=== PATIENT | male | born 1965 | race Caucasian/White ===

== ENCOUNTER 2022-11-26 19:08 | Emergency (ER) | payer OTHER, SELFPAY ==
[2022-11-26] VITALS (30 sets, daily range): BP systolic 103–140; BP diastolic 49–95; PULSE 56–95; RESP 8–29; TEMP 36.6; O2SAT 95–100; BMI 32.9
--- NOTE | 2022-11-26 19:30 | ED_ITS ---
HPI - Weakness General Chief complaint: Weakness Stated complaint: BLOOD LOSS Time Seen by Provider: 11/26/22 19:23 Source: patient Mode of arrival: ambulance Limitations: no limitations History of Present Illness HPI Narrative: coffee ground emesis Saturday night x 1. Generalized weakness since Saturday. Dark loose stool today containing blood. no abdominal pain. States he had colonoscopy and UGI 1.[address] [facility] due to brother with recent diagnosis of colon CA. No evidence of colon CA. States there was some concern about blood vessels seen with the UGI. No fever. MD Complaint: Reports generalized weakness Related Data Allergies Allergy/AdvReac Type Severity Reaction Status Date / Time No Known Drug Allergies Allergy Verified 11/26/22 19:13 Review of Systems ROS Status of ROS 10 or more systems reviewed and unremarkable except as noted in history and below [facility] Social History Smoking status: Current every day smoker Exam Constitutional Vital Signs, click to edit/add: Last Vital Signs Temp 97.8 F 11/26/22 19:13 Pulse 61 11/26/22 20:50 Resp 17 11/26/22 20:50 BP 124/83 11/26/22 20:46 Pulse Ox 99 11/26/22 20:50 Common normals: no apparent distress, average body habitus, oriented x3, no limitations, healthy appearing and alert [facility] Common normals: normocephalic and head/scalp atraumatic Eye Common normals: PERRL, EOMs intact bilaterally and conjunctivae normal Respiratory Common normals: normal respiratory effort, no retractions, no use of accessory muscles and clear to auscultation bilaterally Cardio Common normals: regular rate, regular rhythm, S1 normal heart sound and S2 normal heart sound GI Common normals: Normal to inspection, nondistended, normoactive bowel sounds present, soft to palpation, non-tender and no hepatosplenomegaly Extremity Common normals: normal to inspection and full ROM Neuro Common normals: oriented x3, CN's II-XII intact bilaterally, moves all extremities, no focal motor deficits and no sensory deficits noted Psych Appearance: grossly normal Course Vital Signs Vital signs: Vital Signs Temperature 97.8 F 11/26/22 19:13 Pulse Rate 74 11/26/22 19:13 Respiratory Rate 18 11/26/22 19:13 Blood Pressure 118/95 H 11/26/22 19:13 Pulse Oximetry 98 11/26/22 19:13 Temperature 97.8 F 11/26/22 19:13 Pulse Rate 61 11/26/22 20:50 Respiratory Rate 17 11/26/22 20:50 Blood Pressure 124/83 11/26/22 20:46 Pulse Oximetry 99 11/26/22 20:50 MDM - Weakness MDM Narrative Medical decision making narrative: patient presents with UGI bleed. Per his description of UGI 1.5 months ago at [facility] he likely has esophageal varices. states the doctor was concerned about blood vessels he found on exam. No history of cirrhosis or alcohol abuse. Patient vomited coffee ground material and pass dark stool . Exam in the ER demonstrates tarry stool in the anal canal. H/H is normal but patient is orthostatic. Hydrated with NS and given IV protonix. Case discussed with ICT SALES REPRESENTATIVE at [facility] in [place] and patient accepted for transfer. Did try to transfer to [place] but no beds available Lab Data Labs: Lab Results 11/26/22 11/26/22 Range/Units 19:47 20:35 WBC 7.1 (4.0-11.0) 10^3/uL RBC 4.69 L (4.70-6.10) 10^6/uL Hgb 14.1 (14.0-18.0) g/dL Hct 40.5 L (42.0-54.0) % MCV 86.4 (80.0-94.0) fL MCH 30.1 (25.9-34.0) pg MCHC 34.8 (29.9-35.2) g/dL RDW 12.9 (11.0-15.0) % Plt Count 191 (150-450) 10^3/uL MPV 9.5 (9.5-13.5) fL Neut % (Auto) 60.2 (43.0-75.0) % Lymph % (Auto) 28.9 (20.5-60.0) % [place] % (Auto) 7.8 (1.7-12.0) % Eos % (Auto) 2.1 (0.9-7.0) % Baso % (Auto) 0.4 (0.2-2.0) % Neut # (Auto) 4.2 (1.4-6.5) 10^3/uL Lymph # (Auto) 2.0 (1.2-3.8) 10^3/uL [place] # (Auto) 0.6 (0.3-0.8) 10^3/uL Eos # (Auto) 0.2 (0.0-0.7) 10^3/uL Baso # (Auto) 0.0 (0.0-0.1) 10^3/uL Abs Immat Gran (auto) 0.04 H (0.00-0.03) 10^3/uL Imm/Tot Granulo (auto) 0.6 H (0.0-0.5) % PT 10.9 (9.0-11.6) sec INR 1.03 Sodium 140 (136-145) mmol/L Potassium 3.5 (3.5-5.1) mmol/L Chloride 106 (98-107) mmol/L Carbon Dioxide 27.8 (21.0-32.0) mmol/L Anion Gap 9.7 BUN 15.0 (7.0-18.0) mg/dL Creatinine 1.12 (0.70-1.30) mg/dL Est GFR ( Amer) >60 (>=60) Est GFR (Non-Af Amer) >60 (>=60) BUN/Creatinine Ratio 13.4 Glucose 118 H (74-106) mg/dL Lactate 1.0 (0.4-2.0) mmol/L Calcium 8.4 L (8.5-10.1) mg/dL Total Bilirubin 0.4 (0.2-1.0) mg/dL AST 16 (15-37) U/L ALT 29 (16-63) U/L Alkaline Phosphatase 124 H (46-116) U/L Troponin I High Sens 5.6 (4.0-76.1) pg/mL Total Protein 6.6 (6.4-8.2) g/dL Albumin 3.6 (3.4-5.0) g/dL Globulin 3.0 g/dL Albumin/Globulin Ratio 1.2 Stool Occult Blood Positive A Discharge Plan Discharge Chief Complaint: Weakness Clinical Impression: Acute upper gastrointestinal bleeding Patient Disposition: [facility] Discharge Location: [facility] Mode of Transportation: EMS
[2022-11-26 19:57] LABS: Basophils Percent Auto 0.4 % (0.2-2.0); Eosinophils Absolute Auto 0.2 10^3/uL (0.0-0.7); Eosinophils Percent Auto 2.1 % (0.9-7.0); Hematocrit 40.5 % (42.0-54.0); Hemoglobin 14.1 g/dL (14.0-18.0); Immature Granulocytes Abs Auto 0.04 10^3/uL (0.00-0.03); Immature Granulocytes Pct Auto 0.6 % (0.0-0.5); Lymphocytes Percent Auto 28.9 % (20.5-60.0); Mean Corpuscular HGB Conc 34.8 g/dL (29.9-35.2); Mean Corpuscular Hemoglobin 30.1 pg (25.9-34.0); Mean Corpuscular Volume 86.4 fL (80.0-94.0); Mean Platelet Volume 9.5 fL (9.5-13.5); Monocytes Absolute Auto 0.6 10^3/uL (0.3-0.8); Monocytes Percent Auto 7.8 % (1.7-12.0); Neutrophils Absolute Auto 4.2 10^3/uL (1.4-6.5); Neutrophils Percent Auto 60.2 % (43.0-75.0); Platelet Count 191 10^3/uL (150-450); Red Blood Count 4.69 10^6/uL (4.70-6.10); Red Cell Distribution Width 12.9 % (11.0-15.0); White Blood Count 7.1 10^3/uL (4.0-11.0)
[2022-11-26] MEDS: 0.9 % SODIUM CHLORIDE 1,000 ML 999 ML IV (20:03)
[2022-11-26 20:09] LABS: INR 1.03; Prothrombin Time 10.9 sec (9.0-11.6)
--- NOTE | 2022-11-26 20:16 | ECG_ITS ---
[facility] Test Date: 2022-11-26 Pat Name: SAMMY LEWIS Department: Room: - Gender: Male Transport Company Manager: : 1965 Requested By: 1031 Order Number: [id number] Reading MD: JESSICA LANG Measurements Intervals [place] Rate: 66 P: 44 WI: 182 QRS: -32 QRSD: 98 T: 16 QT: 392 QTc: 406 Interpretive Statements 1100 Sinus rhythm 7200 Abnormal left axis deviation 9130 borderline ECG No previous ECG available for comparison Electronically Signed On 11-30-2022 6:56:47 EDT by JESSICA LANG
[2022-11-26 20:21] LABS: Alanine Aminotransferase 29 U/L (16-63); Albumin Globulin Ratio 1.2; Albumin Level 3.6 g/dL (3.4-5.0); Alkaline Phosphatase 124 U/L (46-116); Anion Gap 9.7; Aspartate Amino Transferase 16 U/L (15-37); BUN Creatinine Ratio 13.4; Bilirubin Total 0.4 mg/dL (0.2-1.0); Calcium 8.4 mg/dL (8.5-10.1); Carbon Dioxide 27.8 mmol/L (21.0-32.0); Chloride 106 mmol/L (98-107); Estimated GFR (African America >60 (>=60); Estimated GFR (Non-African Ame >60 (>=60); Glucose 118 mg/dL (74-106); Potassium 3.5 mmol/L (3.5-5.1); Sodium 140 mmol/L (136-145); Total Protein 6.6 g/dL (6.4-8.2); Troponin I High Sensitivity 5.6 pg/mL (4.0-76.1)
[2022-11-26 21:23] LABS: Occult Blood Positive
[2022-11-26] MEDS: PANTOPRAZOLE SODIUM 40 MG VIAL IV (22:06)
--- NOTE | 2022-11-26 23:59 | PC.NURSE ---
Report called to [facility]. Reviewed pt. case & answered all questions.
== END 2022-11-27 00:08 | disposition short-term general hospital (02) ==
PROVIDERS: Emergency Provider Internal Medicine; PCP Internal Medicine
DX: K92.2 Gastrointestinal hemorrhage, unspecified (principal)
CPT/HCPCS: 36415; 80053; 83605; 84484; 85025; 85610; 93005; 96361; 96374; 99285; G0328

== ENCOUNTER 2025-02-25 09:36 | Emergency (ER) | payer MEDICARE, SELFPAY ==
[2025-02-25 09:41] VITALS: BP 128/85; PULSE 72; TEMP 36.5; O2SAT 98; BMI 29.5
--- NOTE | 2025-02-25 09:53 | ED_ITS ---
HPI - Extremity Problem General Chief complaint: Extremity Problem, Nontraumatic Stated complaint: R LEG STIFFNESS Time Seen by Provider: 02/25/25 09:43 Source: patient Mode of arrival: walk-in Limitations: no limitations History of Present Illness HPI Narrative: The patient already have a history of chronic knee issues he supposed to get an MRI done as outpatient but he mentioned that he could not afford his down payment. The patient is coming to the ER with increased swelling of the right knee after he has not been able to bend it because of the swelling. The patient denies any recent fall or any trauma or any other concerns No fever no chills Related Data Previous Rx's ?Medication ?Instructions ?Recorded methylprednisolone 4 mg tablets in 4 mg PO .as directe d #21 ea 02/25/25 a dose pack (Medrol (Zackary)) tramadol 50 mg tablet 50 mg PO Q8H PRN pain 3 days #9 02/25/25 tabs Allergies Allergy/AdvReac Type Severity Reaction Status Date / Time No Known Drug Allergies Allergy Verified 11/26/22 19:13 Review of Systems ROS Status of ROS 10 or more systems reviewed and unremark able except as noted in history and below PFSH PFSH Social History Smoking status: Current every day smoker Little interest or pleasure in doing things: not at all Feeling down, depressed, or hopeless: not at all Exam Narrative Exam Narrative: Nurses notes and vital signs reviewed and patient is not hypoxic. General: Well-appearing and in no apparent distress. Right lower extremity examination: The patient right knee is significantly swollen compared to the left side and it is not showing any redness any signs of infection and there is no open wound It is mildly warm which subserosally secondary to the inflammation There is some decrease in range of movement due to the effusion Neurological: A&O x4. No cranial nerve dysfunction observed. No truncal ataxia. Moves all extremities. Sensation intact. Psychiatric: Cooperative and interactive. Normal mood and affect. Constitutional Vital Signs, click to edit/add: Last Vital Signs Temp 97.7 F 02/25/25 09:41 Pulse 72 02/25/25 09:41 Resp 18 02/25/25 09:41 BP 128/85 02/25/25 09:41 Pulse Ox 98 02/25/25 09:41 O2 Del Method Room Air 02/25/25 09:41 Course Vital Signs Vital signs: Vital Signs Temperature 97.7 F 02/25/25 09:41 Pulse Rate 72 02/25/25 09:41 Respiratory Rate 18 02/25/25 09:41 Blood Pressure 128/85 02/25/25 09:41 Pulse Oximetry 98 02/25/25 09:41 Oxygen Delivery Method Room Air 02/25/25 09:41 Temperature 97.7 F 02/25/25 09:41 Pulse Rate 72 02/25/25 09:41 Respiratory Rate 18 02/25/25 09:41 Blood Pressure 128/85 02/25/25 09:41 Pulse Oximetry 98 02/25/25 09:41 Oxygen Delivery Method Room Air 02/25/25 09:41 MDM - Extremity (Nontraumatic) MDM Narrative Medical decision making narrative: The patient presents to us with arthritis and knee effusion which mostly secondary to inflammation it could be secondary to a meniscus tear the patient mentioned that he already was told he had a ligament problem that he had minor surgery for before and he was planned to have MRI as outpatient of the right knee The patient right now instructed that it is important to get the MRI, the patient will provided with the tramadol for pain after he had a history of upper GI bleed but he was provided only with 1 dose of Toradol here in the ER This history was almost 2 years ago The patient denies any abdominal pain or any blood in stool he was provided also with Medrol Dosepak in addition to tramadol and Edgardo wrap and a knee immobilizer Instructed about the importance of monitoring symptoms in case of any redness or any new symptoms he is to come back to the ER Discharge Plan Discharge Chief Complaint: Extremity Problem, Nontraumatic Clinical Impression: Arthritis of knee, Effusion of knee Patient Disposition: Home, Self-Care Time of Disposition Decision: 09:55 Condition: Good Prescriptions / Home Meds: New tramadol 50 mg tablet 50 mg PO Q8H PRN (Reason: pain) 3 Days Qty: 9 0RF methylprednisolone [Medrol (Zackary)] 4 mg tablets,dose pack 4 mg PO .as directed Qty: 21 0RF Rx Instructions: Please use as directed by the Medrol Dosepak instruction Print Language: Occitan Instructions: Swollen Knee Joint (ED), Joint Aspiration (DC) Referrals: DOROTA ORTIZ [Primary Care Provider, Internal Medicine] - 1 week
--- OUTSIDE RECORDS SUMMARY | 2025-02-25 10:02 | XMS_ITS | Clinical Summary ---
Author Organization [facility] Address [address], [address] [place] [address] Care Team Providers Care Track Equipment Operator Name Role Phone Hemal Prado Primary Care Provider [phone] Allergies No known active allergies Medications MedicationSigDispense QuantityRefillsLast FilledStart DateEnd DateStatus carvedilol (COREG) 3.125 MG tablet Take 1 tablet by mouth 2 times daily (with meals) 60 tablet ctive pantoprazole (PROTONIX) 40 MG tablet Take 1 tablet by mouth every morning (before breakfast) 30 tablet ctive Active Problems ProblemNoted DateDiagnosed DateGastrointestinal hemorrhage with bcubqp3011/27/2022 Gastrointestinal hemorrhage with rnmiaplsqcy29/15/2023Non-alcoholic fatty liver disease by gexeqqz6511/27/2022lass 1 obesity due to excess calories with serious comorbidity and body mass index (BMI) of 31.0 to 31.9 in adult11/27/2022 Esophageal varices without cixwpbtu35/15/2023Mallory-Whitman tear11/27/2022 Family History Medical HistoryRelationNameCommentsColon CancerBrotherdiagnosed 57Pneumonia FatherCoronary Art DisMaternal GrandfatherColon CancerPaternal Grpvlltqame35 at diagnosisColon CancerPaternal Xmnunriccpg61'sRelationNameStatusCommentsBrother AliveFatherDeceasedMaternal GrandfatherDeceasedMotherAlivePaternal Grandfather DeceasedPaternal GrandmotherDeceased Social History Tobacco UseTypesPacks/DayYears UsedDateSmoking Tobacco: NeverPassive Smoke Exposure: NeverSmokeless Tobacco: NeverAlcohol UseStandard Drinks/WeekComments Yes0 (1 standard drink = 0.6 oz pure alcohol)occasionalInterpersonal Safety Domain Source: IP Abuse ScreeningAnswerDate RecordedRead-Only, Retired: Physical RtllxFehbzk30/15/2023Read-Only, Retired: Verbal RlpkxNcruux19/15/2023Read-Only, Retired: Emotional lgskdNveqlo30/15/2023Read-Only, Retired: Financial Abuse Gtmxog8011/27/2022Read-Only, Retired: Sexual rkvfjFzdcwm19/15/2023Sex and Gender InformationValueDate RecordedSex Assigned at BirthNot on fileLegal SexMale 11/26/2022 9:33 PM EDTGender IdentityNot on fileSexual OrientationNot on file Last Filed Vital Signs Vital SignReadingTime TakenCommentsBlood Lhvgaksl862/9211/28/2022 4:00 PM EDTRN vrbhknemRwiiw0630/16/2023 4:00 PM IHHMrihyqrzkpg65.7 ??C (98.1 ??F)11/28/2022 4:00 PM EDTRespiratory Dyhl500111/28/2022 4:00 PM EDTOxygen Zfsyundaiz39% 11/28/2022 4:00 PM EDTInhaled Oxygen Concentration--Imbtvq489.5 kg (245 lb 13 oz)11/27/2022 1:45 AM FOQCsmfmm838 cm (6' 2 )11/27/2022 1:45 AM EDTBody Mass Index31.56011/27/2022 1:45 AM EDT Plan of Treatment Health MaintenanceDue DateLast DoneCommentsDepression Rofycq1408/29/1979HIV screen 08/28/1982Hepatitis C ibnxon8108/28/1985DTaP/Tdap/Td vaccine (1 - Tdap)08/28/1986 Hepatitis B vaccine (1 of 3 - 19+ 3-dose series)08/28/19861439Utjfna72/16/2008 Iadrttjjaqh58/16/2013Colorectal Cancer Dkxtbp2008/28/2012FIT/FOBT: Average risk 08/28/2012Fecal-DNA (Cologuard): Average risk08/28/2012Sigmoidoscopy/CT tuiakraroxtt25/16/2013Pneumococcal 50+ years Vaccine (1 of 1 - PCV)08/28/2017 Shingles vaccine (1 of 2)08/28/2017Flu vaccine (#1)501/, 12/30/2019, 11/28/2019, Additional history existsCOVID-19 Vaccine ( season)504/, 07/14/2020Hepatitis A vaccineAged OutNo longer eligible based on patient's age to complete this topicHib vaccineAged OutNo longer eligible based on patient's age to complete this topicMeningococcal (ACWY) vaccineAged OutNo longer eligible based on patient's age to complete this topicMeningococcal B vaccineAged OutNo longer eligible based on patient's age to complete this topicPolio vaccineAged OutNo longer eligible based on patient's age to complete this topic Insurance [address] [place] [id number] [address] [phone] Advance Directives * Full Code (Latest Code Status on File) Date ActivatedDate InactivatedComments11/27/2022 2:12 AM11/28/2022 8:41 PM NameRelationshipHealthcare Agent RelationshipCommunicationElizabePrisma Health [facility] Decision MakerPrimary Decision Maker* Vavonda NewsomeParentSecondary Decision Maker* Care Teams Team MemberRelationshipSpecialtyStart DateEnd Date Hemal Prado DO [address] [place] [address] PCP - GeneralInternal Medicine11/27/22
--- OUTSIDE RECORDS SUMMARY | 2025-02-25 10:02 | XMS_ITS | Clinical Summary ---
Author Organization [facility] Address [address] [place] [address] Care Team Providers Care Executive Coordinator Name Role Phone Unavailable Primary Care Provider Unavailabl e Social History Tobacco UseTypesPacks/DayYears UsedDateSmoking Tobacco: Never AssessedSex and Gender InformationValueDate RecordedSex Assigned at BirthNot on fileLegal Sex Male06/27/2022 7:18 PM EDTGender IdentityNot on fileSexual OrientationNot on file Last Filed Vital Signs Vital SignReadingTime TakenCommentsBlood Flufckrr102/7410 12:00 PM EDT Pulse--Temperature--Respiratory Rate--Oxygen Saturation--Inhaled Oxygen Concentration--Bldifh087 kg (228 lb)01/07/2020 12:00 PM LJDCqbcwl142 cm (6' 2 ) 01/07/2020 12:00 PM EDTBody Mass Index29.2709 12:00 PM EDT Plan of Treatment Not on file
[2025-02-25] MEDS: KETOROLAC TROMETHAMINE 30 MG/ML VIAL IM (10:03)
--- OUTSIDE RECORDS SUMMARY | 2025-02-25 10:03 | XMS_ITS | Clinical Summary ---
Author Organization [address] tem Address [id number] [address] [place] [address] Care Team Providers Care Welder Journeyman Name Role Phone Randkory Hemal Donita MOORE Primary Care Provider [phone] Allergies No known active allergies Medications MedicationSigDispense QuantityRefillsLast FilledStart DateEnd DateStatus carvediloL (COREG) 3.125 mg tablet Indications:Idiopathic esophageal varices without bleeding (CMS-HCC)TAKE 1 TABLET BY MOUTH TWICE DAILY (IN THE MORNING and IN THE EVENING) WITH MEALS 180 tablet 5Active allopurinoL (ZYLOPRIM) 300 mg tablet Indications:Idiopathic chronic gout of foot without tophus, unspecified lateralityTAKE 1 TABLET BY MOUTH IN THE MORNING 90 tablet 1065Active metoclopramide (REGLAN) 10 mg tablet Indications:Gastroesophageal reflux disease, unspecified whether esophagitis presentTAKE 1 TABLET BY MOUTH NIGHTLY 90 tablet 5Active colchicine (COLCRYS) 0.6 mg tablet Indications:Idiopathic chronic gout of foot without tophus, unspecified lateralityTake 1 tablet (0.6 mg total) by mouth every morning. 90 tablet 5Active tamsulosin (FLOMAX) 0.4 mg capsule Indications:Benign prostatic hyperplasia with incomplete bladder emptyingTAKE 1 CAPSULE BY MOUTH IN THE MORNING 90 capsule 5Active atorvastatin (LIPITOR) 20 mg tablet Indications:Hyperlipidemia, unspecified hyperlipidemia typeTAKE 1 TABLET BY MOUTH IN THE MORNING 90 tablet 5Active pantoprazole (PROTONIX) 40 mg EC tablet Indications:Idiopathic esophageal varices without bleeding (CMS-HCC)TAKE 1 TABLET BY MOUTH IN THE MORNING BEFORE BREAKFAST 90 tablet 5Active pregabalin (LYRICA) 150 mg capsule Indications:Herniated lumbar intervertebral discTAKE 1 CAPSULE BY MOUTH IN THE MORNING then TAKE 1 CAPSULE BY MOUTH BEFORE bedtime 60 capsule 5Active atorvastatin (LIPITOR) 20 mg tablet Indications:Hyperlipidemia, unspecified hyperlipidemia typeTake 1 tablet (20 mg total) by mouth in the morning. 90 tablet Discontinued pantoprazole (PROTONIX) 40 mg EC tablet Indications:Idiopathic esophageal varices without bleeding ([facility]-H[facility])TAKE 1 TABLET BY MOUTH IN THE MORNING BEFORE BREAKFAST 90 tablet Discontinued phentermine (ADIPEX-P) 37.5 mg tablet Indications:Class 1 obesity with serious comorbidity and body mass index (BMI) of 31.0 to 31.9 in adult, unspecified obesity typeTake 1 tablet (37.5 mg total) by mouth every morning before breakfast. 30 tablet Discontinued(Therapy completed) pregabalin (LYRICA) 150 mg capsule Indications:Herniated lumbar intervertebral discTake 1 capsule (150 mg total) by mouth in the morning and 1 capsule (150 mg total) before bedtime. 60 capsule Discontinued Active Problems ProblemNoted DateDiagnosed DateMallory-Whitman tear11/27/2022Non-alcoholic fatty liver aqbtuhf9311/27/2022Idiopathic esophageal varices without vzlcupmv77/19/2023 Esophageal ulcer without dqrzxdvu94/19/2023olyp of sigmoid colon08/31/2022 Diverticulosis large intestine w/o perforation or abscess w/o /19/2023 Family history of malignant neoplasm of colon in first degree relative diagnosed when younger than 60 years of age0508/17/2022Urinary wadtoixfdper60/05/2023 Overview (07/18/2022): 07/18/22: Discussed cystoscopy and urodynamics testing. He would prefer medication trial prior to testing. PVR is minimal, so I think we will start with a trial of Myrbetriq 50 mg. He will also avoid caffeine Assessment & Plan (07/18/2022 9:27 AM EDT): We discussed that sometimes the symptoms can also be related to BPH. I warned him of the risk of retention with Myrbetriq. He will discontinue if he has any difficulty voiding. We will have him come back in 2 weeks to check a PVR. I also told him to monitor his blood pressure while on the Myrbetriqand to discontinue if elevated. We will schedule him to see Dr. Gusman in about 2 months or so. I told him to call me sooner with an update. I will send in a prescription to his pharmacy if the medication is effective and there are no side effects. Elevated PSA07/18/2022 Overview (07/18/2022): 07/18/22: PSA 3.71. There are no other values for comparison. I told him that for his age group, thisis on the higher end. No direct relatives with a history of prostate cancer. Rectal exam today is very limited but no obvious abnormalities. We will check a free/total PSA before his follow-up Moderate depressive lbrxjka8902/05/2019Obstructive sleep apnea iqydtfpr70/24/2019 Gastroesophageal reflux yzqbheo3003/04/2018Gout03/04/2018Herniated lumbar intervertebral disc03/04/2018 Encounters DateTypeDepartmentCare SrjfEcnyckbgoal03/27/2025Orders Only [facility] [address] [place] [address] Hemal Prado DO Rising PSA level (Primary Dx)02/07/2025Results Follow-Up [facility] [address] [place] [address] Hemal Prado, DO Prostatic specific antigen screen, Lipid profile, Comprehensive metabolic panel, POCT urinalysis dipstick only02/05/2025 9:45 AM EDTOffice Visit [facility] [address] [place] [address] Hemal Prado DO Herniated lumbar intervertebral disc (Primary Dx); Lumbar radiculopathy, right; Benign prostatic hyperplasia with incomplete bladder emptying; Acute medial meniscus tear of right knee, subsequent encounter; Urinary hesitancy; Encounter for screening for malignant neoplasm of prostate; Essential hypertension; Steatosis of liver; Hyperlipidemia, unspecified hyperlipidemia type02/04/2025[facility] [address] [address] Ana Gary, SIX PACK LOADER OPERATOR-CONCRETE GUN OPERATOR Herniated lumbar intervertebral disc02/04/2025[facility] [address] [place] [address] Hemal Prado, Hyperlipidemia, unspecified hyperlipidemia type; Idiopathic esophageal varices without bleeding ([facility]-HCC)02/03/2025Travel 01/12/2025Refill [facility] [address] [address] Ana Gary, SIX PACK LOADER OPERATOR-CONCRETE GUN OPERATOR Benign prostatic hyperplasia with incomplete bladder hpfifamn73/30/2025Orders [facility] [address] [facility] [address] Ana Gary, SIX PACK LOADER OPERATOR-CONCRETE GUN OPERATOR Herniated lumbar intervertebral disc; Benign prostatic hyperplasia with incomplete bladder tinjxbqb99/29/2025Refill [facility] [address] [facility] [place] [address] Dena Rosario CMA Herniated lumbar intervertebral disc; Class 1 obesity with serious comorbidity and body mass index (BMI) of 31.0 to 31.9 in adult, unspecified obesity type; Benign prostatic hyperplasia with incomplete bladder vcfimnln15/24/2025Refill [facility] [address] [place] [address] Hemal Prado DO Benign prostatic hyperplasia with incomplete bladder emptying; Herniated lumbar intervertebral disc12/08/2024Refill [facility] [address] [place] [address] Dena Rosario, MANAGER POWER Idiopathic chronic gout of foot without tophus, unspecified lateralityfrom Last 3 Months Immunizations ImmunizationAdministration DatesNext DueCOVID-19, mRNA, LNP-S, PF, 30mcg/0.3mL Dose07/14/2020Influenza Split Preservative Free ID01/13/2018Influenza, Im Trivalent Lksslostpfxv63/20/2018,01/13/2018,03/01/2017Influenza, Injectable, MDCK, Xhiyzdluaayh03/16/2023Influenza, Injectable, Asyubwrfzpsv45/17/2017 Influenza, Injectable, quadrivalent (PF)12/30/2019,11/28/2019 Family History Medical HistoryRelationNameCommentsLiver cancerBrother 1No Known ProblemsBrother 2No Known ProblemsBrother 3Ovarian cancerDaughterHeart attackFatherStrokeFather Breast cancerMotherClotting disorderPaternal GrandfatherClotting disorder Paternal GrandmotherRelationNameStatusCommentsBrother 1AliveBrother 2Alive Brother 3AliveDaughterAliveFatherDeceasedMotherAlivePaternal GrandfatherDeceased Paternal GrandmotherDeceased Social History Tobacco UseTypesPacks/DayYears UsedDateSmoking Tobacco: NeverSmokeless Tobacco: Never Tobacco Cessation:Counseling Given: Not Answered Alcohol UseStandard Drinks/WeekCommentsNever0 (1 standard drink = 0.6 oz pure alcohol)Social Connection and Isolation PanelAnswerDate RecordedIn a typical week, how many times do you talk on the phone with family, friends, or neighbors?More than three times a week04/29/2022How often do you get together with friends or relatives?Once a week04/29/2022How often do you attend mu-ism or hoahaoism services?Never3Do you belong to any clubs or organizations such as mu-ism groups, unions, fraternal or athletic groups, or school groups?No 04/29/2022How often do you attend meetings of the clubs or organizations you belong to?Never04/29/2022re you , , , , never , or living with a partner?Lnyqush1404/29/2022UDIT-CAnswerDate RecordedQ1: How often do you have a drink containing alcohol?Monthly or less04/29/2022Q2: How many drinks containing alcohol do you have on a typical day when you are drinking?1 or Q3: How often do you have six or more drinks on one occasion?Never04/29/2022HQ-2AnswerDate RecordedTotal Nipwa841Finhuntsman [facility] [place] of Occupational Health - Occupational Stress QuestionnaireAnswerDate RecordedDo you feel stress - tense, restless, nervous, or anxious, or unable to sleep at night because yourmind is troubled all the time - these days?Very much 04/29/2022Exercise Vital SignAnswerDate RecordedOn average, how many days per week do you engage in moderate to strenuous exercise (like a brisk walk)?2 days 04/29/2022On average, how many minutes do you engage in exercise at this level? 20 min04/29/2022Overall Financial Resource Strain (CARDIA)AnswerDate RecordedHow hard is it for you to pay for the very basics like food, housing, medical care, and heating?Not hard at all02/03/2025PRAPARE - TransportationAnswerDate Recorded In the past 12 months, has lack of transportation kept you from medical appointments or from getting medications?No02/03/2025In the past 12 months, has lack of transportation kept you from meetings, work, or from getting things needed for daily living?No02/03/2025Housing InstabilityAnswerDate RecordedAre you worried or concerned that in the next two months you may not have stable housing that you own, rent or stay in as a part of a household?No02/03/2025 ChildcareAnswerDate RecordedDo problems getting child development teacher make it difficult for you to work or study?No04/29/2022EmploymentAnswerDate RecordedDo you need help finding a local career center and/or a training program?No04/29/2022Hunger ScreeningAnswerDate RecordedWithin the past 12 months we worried whether our food would run out before we got money to buy more.Never True02/03/2025Within the past 12 months the food we bought just didn't last and we didn't have money to get more.Never True02/03/2025Purpose - LifeAnswerDate RecordedI have a purpose and direction in my life.Somewhat Agree04/29/2022EducationAnswerDate RecordedWhat is the highest level of school you have completed or the highest degree you have received?11th grade04/29/2022Sex and Gender InformationValueDate RecordedSex Assigned at BirthNot on fileLegal JvmCyrb3611/18/2014 11:42 AM EDT Gender IdentityNot on fileSexual OrientationNot on file Last Filed Vital Signs Vital SignReadingTime TakenCommentsBlood Bxckvikv929/7002/05/2025 9:44 AM EDT Qwqhx289802/05/2025 9:44 AM MZTBgahrucdrba92.5 ??C (97.7 ??F)02/05/2025 9:44 AM EDTRespiratory Arfa1204 9:44 AM EDTOxygen Cvzxlkmbmi66%02/05/2025 9:44 AM EDTInhaled Oxygen Concentration--Bbhgjr055 kg (231 lb 6.4 oz)02/05/2025 9:44 AM LHMUdoiyv722 cm (6' 2.02 )02/05/2025 9:44 AM EDTBody Mass Index29.710 9:44 AM EDT Plan of Treatment DateTypeDepartmentCare Team (Latest Contact Info)Saqreusfajs27/12/2026 2:00 PM ESTOffice Visit [facility] [address] [place] [address] [place] [address] [address] Margarito Hernadez MD [address] [place] [address] Health MaintenanceDue DateLast DoneCommentsAdult BMI Follow Up Plan08/28/1985 DTaP,Tdap and Td Vaccines (1 - Tdap)08/28/1986Zoster (Shingles) Vaccine (1 of 2) 08/28/2017COVID-19 Vaccine (3 - season)/2021, 07/14/2020 Influenza Cpcvrti74/, 12/30/2019, 11/28/2019, Additional history existsTobacco Nctrbakom15Depression Screening /dult BMI Grxhvxaxn91 Medical Devices Not on file Procedures Procedure NamePriorityDate/TimeAssociated DiagnosisCommentsPOCT URINALYSIS DIPSTICK SCDUCtufdij83/27/2025 10:13 AM EDT Urinary hesitancy COMPREHENSIVE METABOLIC YLITKLmryhzw10/24/2025 10:28 AM EDT Hyperlipidemia, unspecified hyperlipidemia type LIPID TTPMZTOIjgwyod39/24/2025 10:28 AM EDT Hyperlipidemia, unspecified hyperlipidemia type PROSTATIC SPECIFIC ANTIGEN BBEVIKKaaaimd81/24/2025 10:28 AM EDT Encounter for screening for malignant neoplasm of prostate from Last 3 Months Results * POCT urinalysis dipstick only (02/08/2025 10:13 AM EDT)ComponentValueRef Range Test MethodAnalysis TimePerformed AtPathologist SignatureExternal Poct Urine ColoryellowMANUALLY TRANSCRIBED RESULTSExternal Poct Urine GlucoseNegative MANUALLY TRANSCRIBED RESULTSExternal Poct Urine BilirubinNegativeMANUALLY TRANSCRIBED RESULTSExternal Poct Urine KetonesNegativeMANUALLY TRANSCRIBED RESULTSExternal Poct Urine Specific Gravity1.020MANUALLY TRANSCRIBED RESULTS External Poct Urine BloodNegativeMANUALLY TRANSCRIBED RESULTSExternal Poct Urine Ph5.5MANUALLY TRANSCRIBED RESULTSExternal Poct Urine ProteinNegative MANUALLY TRANSCRIBED RESULTSExternal Poct Urine Urobilinogen0.2MANUALLY TRANSCRIBED RESULTSExternal Poct Urine NitriteNegativeMANUALLY TRANSCRIBED RESULTSExternal Poct Urine Leukocyte EsteraseNegativeMANUALLY TRANSCRIBED RESULTSSpecimen (Source)Anatomical Location / LateralityCollection Method / VolumeCollection TimeReceived TprqHlafn28/27/2025 10:13 AM EDT Narrative Authorizing ProviderResult TypeResult StatusHemal Prado DOPOINT OF CARE TEST ORDERABLESFinal ResultPerforming OrganizationAddressCity/State/ZIP CodePhone Number MANUALLY TRANSCRIBED RESULTS * (ABNORMAL) Prostatic specific antigen screen (02/05/2025 10:28 AM EDT) ComponentValueRef RangeTest MethodAnalysis TimePerformed AtPathologist SignaturePROSTATIC SPEC ANT5.02(H)0.00 - 4.00 ng/mL02/05/2025 6:16 PM EDT [facility]ORATORYComment: The method used for this test is Veronika Hazel Green DXI chemiluminescent immunoassay. Values obtained by different assay methods cannot be used interchangeably. Specimen (Source)Anatomical Location / LateralityCollection Method / Volume Collection TimeReceived TimeBloodVenous blood / Ziujlrn7302/05/2025 10:28 AM EDT 02/05/2025 10:28 AM EDT Narrative Authorizing ProviderResult TypeResult StatusJojordan Donita Prado DOL BLOOD ORDERABLES Final ResultPerforming OrganizationAddressCity/State/ZIP CodePhone Number [facility] [address] [place] [phone], * Lipid profile (02/05/2025 10:28 AM EDT)ComponentValueRef RangeTest Method Analysis TimePerformed AtPathologist MlvlildlcHKKHTHVGFRH246781 - 200 mg/dL 02/05/2025 6:12 PM [facility] QEIYANFJPPLCGUDMZUCQDW42615 - 150 mg/dL02/05/2025 6:12 PM [facility] LABORATORYHDL FGXSJYVLQNW35>39 mg/dL02/05/2025 6:12 PM [facility] LABORATORYComment: HDL <40 mg/dL - High Risk HDL > or = 40mg/dL- Desirable HDL >60 mg/dL - Negative Risk LDL (CALC)116<130 mg/dL02/05/2025 6:12 PM [facility] Comment: LDL <100 mg/dL - Desirable LDL >160 mg/dL - High Risk CHOLESTEROL:HDL4.11.0 - 5.010 6:12 PM [facility] LABORATORYVERY LOW JKFWTDEPAUC590 - 30 mg/dL02/05/2025 6:12 PM [facility] LABORATORYSpecimen (Source)Anatomical Location / Laterality Collection Method / VolumeCollection TimeReceived TimeBloodVenous blood / Heiitou1902/05/2025 10:28 AM EDT1 10:28 AM EDT Narrative Authorizing ProviderResult TypeResult StatusHemal FLETCHER BLOOD ORDERABLES Final ResultPerforming OrganizationAddressCity/State/ZIP CodePhone Number [facility] [address] [place] [phone], * Comprehensive metabolic panel (02/05/2025 10:28 AM EDT)ComponentValueRef Range Test MethodAnalysis TimePerformed AtPathologist UdazwyzkqEDDOYD611680 - 146 mmol/L1 6:12 PM [facility] LABORATORYPOTASSIUM4.23.5 - 5.0 mmol/L1 6:12 PM [facility] LABORATORYCHLORIDE 50343 - 109 mmol/L1 6:12 PM [facility] CARBON KUBPNHE1021 - 32 mmol/L1 6:12 PM [facility] LABORATORYANION GAP85 - 15 mmol/L1 6:12 PM [facility] LABORATORYBLOOD UREA ZUUUDCAS591 - 23 mg/dL02/05/2025 6:12 PM [facility] LABORATORYCREATININE0.950.60 - 1.30 mg/dL02/05/2025 6:12 PM [facility] LABORATORYComment:METHOD TRACEABLE TO IDOK ADKRGZUPAKWYEVN6365 - 99 mg/dL02/05/2025 6:12 PM [facility] LABORATORYCALCIUM9.58.5 - 10.5 mg/dL02/05/2025 6:12 PM [facility] LABORATORYTOTAL PROTEIN6.56.0 - 8.0 g/dL02/05/2025 6:12 PM [facility] LABORATORYALBUMIN4.13.2 - 5.3 g/dL02/05/2025 6:12 PM EDT [facility] LABORATORYALKALINE XYCKDMZYPFI96849 - 130 U/L 02/05/2025 6:12 PM [facility] MNYGOCPJSJAER48<=41 U/L 02/05/2025 6:12 PM [facility] SUCDWKYVLQUXV85<=40 U/L 02/05/2025 6:12 PM [facility] LABORATORYBILIRUBIN,TOTAL0.60.3 - 1.2 mg/dL02/05/2025 6:12 PM [facility] LABORATORYEGFR Non- Race Dependent>90>=60 ml/min/1.73sq.m1 6:12 PM [facility]ORATORYComment: Reported eGFR is based on the CKD-EPI 2020 equation that does not use a race coefficient. Specimen (Source)Anatomical Location / LateralityCollection Method / Volume Collection TimeReceived TimeBloodVenous blood / Njavekm4702/05/2025 10:28 AM EDT 02/05/2025 10:28 AM EDT Narrative Authorizing ProviderResult TypeResult StatusHemal Prado DOL BLOOD ORDERABLES Final ResultPerforming OrganizationAddressCity/State/ZIP CodePhone Number [facility] [address] [place] [address], [place] [phone] from Last 3 Months Insurance * Guarantor: Tony Piña TypeRelation to PatientDate of BirthPhoneBilling AddressPersonal/UgytfkYjnv51/16/1966 [address] [address] Care Teams Team MemberRelationshipSpecialtyStart DateEnd Date Hemal rPado DO [address] [place] [address] [facility]10/20/19
--- NOTE | 2025-02-25 10:25 | XR_ITS ---
The [address] [address] Patient Name: SAMMY LEWIS MRN: [id number] date: 1965 Sex: M Assigned Patient Location: ED.MAIN Current Patient Location: ED.MAIN Accession/Order Number: [id number] Exam Date: 02/25/2025 10:15 Report Date: 02/25/2025 10:43 At the request of: FREYA RODRIGUEZ MD Procedure: XR knee RT 3V RIGHT KNEE - 3 views COMPARISON: None CLINICAL DATA: Right knee pain for the past 2 days. No injury. AP, lateral and internal oblique views were obtained. There is no acute fracture or dislocation. No disproportionate joint space narrowing is seen. There is calcific density projecting at the periphery of the tibiofemoral joint spaces. This may be degenerative and chondrocalcinosis is not excluded. There is minor squaring off the articular margins at the posterior patella. There is a trace amount joint fluid. No soft tissue swelling is noted. XR/XR knee RT 3V IMPRESSION: MINOR DEGENERATIVE CHANGES. NO ACUTE BONY FINDINGS. Impression dictated by: Barbra Preston M.D. 02/25/2025 10:43 AM Dictation Location: [place] [address] Electronically authenticated by: [id number] Y Date: 02/25/2025 10:43
== END 2025-02-25 11:18 | disposition home or self-care (01) ==
PROVIDERS: Emergency Provider Emergency Medicine; PCP Internal Medicine
DX: M17.11 Unilateral primary osteoarthritis, right knee (principal); M25.461 Effusion, right knee; F17.200 Nicotine dependence, unspecified, uncomplicated
CPT/HCPCS: 73562; 96372; 99284; J1885